=== PATIENT | male | born 1990 | race Hispanic/Latino ===

== ENCOUNTER → 2022-04-06 | Outpatient (CLI) | payer OTHER ==
[2022-04-06 13:44] LABS: HEMATOCRIT 46.8 % (42.0-52.0); HEMOGLOBIN 15.8 g/dl (13.5-17.5); MEAN CORPUSCULAR HEMOGLOBIN 34.4 pg (27.0-33.0); MEAN CORPUSCULAR HGB CONC 33.8 g/dl (32.0-36.5); PLATELET COUNT, AUTOMATED 207 10^3/uL (150-450); RED BLOOD COUNT 4.59 10^6/uL (4.30-6.10); WHITE BLOOD COUNT 5.4 10^3/uL (4.0-10.0)
[2022-04-06 14:18] LABS: ALBUMIN 4.2 GM/DL (3.2-5.2); ALT/SGPT 29 U/L (12-78); BILIRUBIN,DIRECT 0.2 MG/DL (0.0-0.2); BILIRUBIN,TOTAL 0.8 MG/DL (0.2-1.0); BLOOD UREA NITROGEN 13 MG/DL (7-18); CALCIUM LEVEL 9.5 MG/DL (8.5-10.1); CARBON DIOXIDE LEVEL 31 MEQ/L (21-32); CHLORIDE LEVEL 103 MEQ/L (98-107); CREATININE FOR GFR 1.01 MG/DL (0.70-1.30); GLOMERULAR FILTRATION RATE > 60.0 (>60); GLUCOSE, FASTING 69 MG/DL (70-100); POTASSIUM SERUM 4.4 MEQ/L (3.5-5.1); SODIUM LEVEL 137 MEQ/L (136-145); TOTAL PROTEIN 7.9 GM/DL (6.4-8.2)
[2022-04-06 15:04] LABS: FOLLICLE STIMULATING HORMONE 2.7 mIU/mL (1.4-18.1); LUTEINIZING HORMONE 2.3 mIU/mL (1.5-9.3); PROLACTIN 4.9 NG/ML (2.1-17.7)
[2022-04-07 15:08] LABS: TESTOSTERONE FREE (DIRECT) 11.2 pg/mL (8.7-25.1)
== END ==
LOC: M LAB 12:06
PROVIDERS: ATTEND Plastic Surgery Surgery of the Hand
DX: N62 Hypertrophy of breast (principal)

== ENCOUNTER → 2022-04-13 | Outpatient (CLI) | payer OTHER | LOC: M WHC 09:49 → EDUNIT# 10:00 | PROVIDERS: ATTEND Plastic Surgery Surgery of the Hand | DX: N62 Hypertrophy of breast (principal) | CPT/HCPCS: 76641; 77066; G0279 ==

== ENCOUNTER 2022-06-15 09:02 | Observation (INO) | payer OTHER ==
[2022-06-15] VITALS (7 sets, daily range): BP systolic 127–164; BP diastolic 52–80
[~2022-06-15] VITALS: Ht 172.7 cm; Wt 71.6 kg
[~2022-06-15 09:02] MED LIST: ceFAZolin SOD 2 GM in IV 1 EA IV ONE
[2022-06-15] MEDS ORDERED: LR 1,000 ML IV SCH ×2 (09:20→15:45)
[2022-06-15] MEDS ORDERED: ROCURONIUM BROMIDE 50 MG/5 ML VIAL As Ordered ONE ×2 (09:28→13:44)
[2022-06-15] MEDS ORDERED: fentaNYL 250 MCG/5 ML INJECTION As Ordered ONE (09:28)
[2022-06-15] MEDS ORDERED: MIDAZOLAM INJ 2MG/2ML VIAL (J2250 PER 1MG) As Ordered ONE (09:28)
[2022-06-15] MEDS ORDERED: LIDOCAINE 2% 100MG/5ML SDV (FOR ANES.) As Ordered ONE (09:28)
[2022-06-15] MEDS ORDERED: ONDANSETRON 4MG 2ML VIAL As Ordered ONE (09:28)
[2022-06-15] MEDS ORDERED: SUGAMMADEX SODIUM 500 MG/5 ML VIAL (BRIDION) As Ordered ONE (09:28)
[2022-06-15] MEDS ORDERED: propofoL 200 MG/20 ML VIAL As Ordered ONE (09:28)
[2022-06-15] MEDS ORDERED: GENTAMICIN SULF 80MG/2ML VIAL As Ordered ONE (11:42)
[2022-06-15] MEDS ORDERED: LIDOCAINE 1% MDV 20ML VIAL As Ordered ONE (11:42)
[2022-06-15] MEDS ORDERED: EPINEPHrine INJ 1 MG/ML 1ML AMP As Ordered ONE (11:42)
[2022-06-15] MEDS ORDERED: BUPIVACAINE HCL 0.25% 10ML VIAL As Ordered ONE (11:42)
[2022-06-15] MEDS ORDERED: BUPIVACAINE LIPOSOME/PF 1.3% 20ML VIAL (13.3MG/ML)(EXPAREL) As Ordered ONE (11:42)
[2022-06-15] MEDS ORDERED: ePHEDrine SULFATE 25 MG/5 ML(5MG/ML) SYRINGE As Ordered ONE (13:31)
[2022-06-15] MEDS ORDERED: GLYCOPYRROLATE INJ 0.2 MG/ML 2 ML VIAL As Ordered ONE (13:34)
[2022-06-15] MEDS ORDERED: ACETAMINOPHEN 1000MG 100ML IV BAG As Ordered ONE (13:37)
[2022-06-15] MEDS ORDERED: HYDROmorphone HCL 2MG/ML 1ML VIAL As Ordered ONE (14:12)
[2022-06-15] MEDS ORDERED: ACETAMINOPHEN TAB 650MG DOSE (2X325MG) PO PRN (15:40)
[2022-06-15] MEDS ORDERED: traMADol 50 MG TAB PO PRN (15:40)
[2022-06-15] MEDS ORDERED: PERCOCET 5MG/325MG TAB PO PRN (15:40)
[2022-06-15] MEDS ORDERED: ONDANSETRON 4MG 2ML VIAL IV PRN ×2 (15:40→15:45)
[2022-06-15] MEDS ORDERED: fentaNYL 100 MCG/2 ML INJECTION IV PRN (15:45)
[2022-06-15] MEDS ORDERED: HYDROMORPHONE HCL 0.5 MG/ 0.5 ML SYRINGE (J1170 PER 1) IV PRN (15:45)
[2022-06-15] MEDS ORDERED: oxyCODONE 5MG TAB PO PRN (15:45)
[2022-06-15] MEDS ORDERED: ceFAZolin SOD 2 GM in IV 1 EA IV ONE (17:00)
[2022-06-15] MEDS: LR 1,000 ML IV SCH (19:56)
[2022-06-16 02:00] VITALS: BP 134/51
[2022-06-16] MEDS: LR 1,000 ML IV SCH (05:00)
[2022-06-16 06:00] VITALS: BP 136/65
[2022-06-16] MEDS ORDERED: TRAM50TA2 PO (09:07)
[2022-06-16 10:00] VITALS: BP 136/67
== END 2022-06-16 09:55 | disposition home or self-care (01) ==
LOC: M SDC 09:02 → M ED INP 15:40 → M MSPAV 17:25
PROVIDERS: ADMIT Plastic Surgery Surgery of the Hand; ATTEND Plastic Surgery Surgery of the Hand
DX: N62 Hypertrophy of breast (principal)
CPT/HCPCS: 19300; 88300; 88305; 96365; C9290; J0131; J0171; J0690; J1100; J1170; J1580; J2250; J2405; J3010

== ENCOUNTER → 2023-09-30 | Outpatient (CLI) | payer OTHER ==
[~2023-09-30] MED LIST changes: +TRAM50TA2 PO; -ceFAZolin SOD 2 GM in IV 1 EA IV ONE
== END ==
LOC: M RAD 14:01
PROVIDERS: ATTEND Physician Assistant
DX: R06.00 Dyspnea, unspecified (principal)

== ENCOUNTER 2023-10-13 13:50 | Emergency (ER) | payer OTHER ==
[~2023-10-13] VITALS: Ht 172.7 cm; Wt 74.2 kg
[2023-10-13 13:50] VITALS: TEMP 98
[2023-10-13] MEDS ORDERED: PRED20TA PO (16:11)
[2023-10-13 16:17] VITALS: BP 133/73; O2SAT 99
== END 2023-10-13 16:19 | disposition home or self-care (01) ==
LOC: M ED 13:50
DX: M25.511 Pain in right shoulder (principal); M25.532 Pain in left wrist; F41.9 Anxiety disorder, unspecified; Z79.52 Long term (current) use of systemic steroids

== ENCOUNTER 2024-03-10 02:36 | Emergency (ER) | payer OTHER ==
[~2024-03-10] VITALS: Ht 172.7 cm; Wt 71.0 kg
[~2024-03-10 02:36] MED LIST changes: +PRED20TA PO
[2024-03-10 03:36] LABS: BASO % 0.1 % (0.0-1.0); EOS % 0.1 % (0.0-3.0); HEMATOCRIT 45.5 % (42.0-52.0); HEMOGLOBIN 16.2 g/dl (13.5-17.5); LYMPH # 0.6 10^3/uL (1.5-5.0); LYMPH % 3.2 % (24.0-44.0); MEAN CORPUSCULAR HGB CONC 35.6 g/dl (32.0-36.5); MEAN CORPUSCULAR VOLUME 98.3 fl (80.0-96.0); MONO # 0.5 10^3/uL (0.0-0.8); MONO % 2.9 % (2.0-8.0); NEUTROPHILS % 93.3 % (36.0-66.0); PLATELET COUNT, AUTOMATED 179 10^3/uL (150-450); RED BLOOD COUNT 4.63 10^6/uL (4.30-6.10); WHITE BLOOD COUNT 17.1 10^3/uL (4.0-10.0)
[2024-03-10 04:08] LABS: LIPASE 35 U/L (12-53)
[2024-03-10 04:10] LABS: ALBUMIN 4.2 G/DL (3.2-5.2); ALKALINE PHOSPHATASE 73 U/L (46-116); ALT/SGPT 24 U/L (7.0-40); AST/SGOT 28 U/L (<34); BILIRUBIN,DIRECT 0.4 MG/DL (<0.4); BILIRUBIN,TOTAL 1.4 MG/DL (0.3-1.2); BLOOD UREA NITROGEN 15 MG/DL (9-23); CALCIUM LEVEL 9.5 MG/DL (8.5-10.1); CARBON DIOXIDE LEVEL 28 MMOL/L (20-31); CHLORIDE LEVEL 105 MMOL/L (98-107); CREATININE FOR GFR 0.97 MG/DL (0.70-1.30); GLOMERULAR FILTRATION RATE > 60.0 (>60); GLUCOSE, FASTING 113 MG/DL (60-100); POTASSIUM SERUM 4.2 MMOL/L (3.5-5.1); SODIUM LEVEL 137 MMOL/L (136-145); TOTAL PROTEIN 7.3 G/DL (5.7-8.2)
[2024-03-10] MEDS ORDERED: ISOVUE-370 76% 100ML VIAL As Ordered ONE (05:08)
[2024-03-10] MEDS: NS 1,000 ML IV ONE (05:59)
[2024-03-10] MEDS: ONDANSETRON 4MG 2ML VIAL IV ONE (06:00)
[2024-03-10] MEDS: KETOROLAC 30 MG/ML 1ML VIAL IV ONE (06:00)
[2024-03-10] MEDS: PIPERACILLIN/TAZOBACTAM SOD 3.375 GM in D5W MINI-BAG PLUS 50 ML IV ONE (06:43)
[2024-03-10 07:36] VITALS: BP 107/55; TEMP 99; O2SAT 96
== END 2024-03-10 07:38 | disposition home or self-care (01) ==
LOC: M ED 02:36
DX: K52.9 Noninfective gastroenteritis and colitis, unspecified (principal); Z79.52 Long term (current) use of systemic steroids
CPT/HCPCS: 74021; 74177; 80048; 80076; 83605; 83690; 85025; 96365; 96375; 99284; J1885; J2405; J2543; Q9967